=== PATIENT | female | born 1980 | race Caucasian/White ===

== ENCOUNTER 2020-03-09 11:09 | Emergency (ER) | payer SELFPAY ==
[2020-03-09] MEDS ORDERED: predniSONE 20 MG TAB ONE (11:34)
== END 2020-03-09 11:40 | disposition home or self-care (01) ==
LOC: MADERS 11:09
DX: L25.9 Unspecified contact dermatitis, unspecified cause (principal)
CPT/HCPCS: 99282; J7512